=== PATIENT | female | born 1965 | race Caucasian/White ===

== ENCOUNTER → 2018-02-15 | Outpatient (CLI) | payer BC ==
[~2018-02-15] MED LIST: AMLO-99 PO; ASCO-182 PO; AZIT-17 PO; BIOT10TA3 PO; CALC600T63 PO; CITA-145 PO; FLUT16SP19; HYDR-2966 PO; HYDR-4309 PO; LORA-629 PO; MULT1CAP59 PO; NORE0.3532 PO; NORE5TAB6; PROP60TA15 PO
--- NOTE | 2018-02-15 13:47 | RADIOLOGY IMAGING REPORT ---
FACILITY: [facility] PATIENT NAME: SHARA LOVING : [id number] MR: [id number] V: [id number] EXAM DATE: [id number] ORDERING PHYSICIAN: KAYY STROUD TECHNOLOGIST: Priscila Pereira PROCEDURE:BILATERAL DIGITAL SCREENING MAMMOGRAM WITH CAD ASSISTED INTERPRETATION & 3D TOMOSYNTHESIS COMPARISON:Prior mammograms 02/11/17, 02/11/16, 02/08/15, 01/16/14, 09/06/12, 03/19/11. INDICATIONS:SCREENING FINDINGS: Moderately heterogeneous fibroglandular tissue is seen throughout the breasts. There is an area of postsurgical scaring and architectural distortion in the approximate 12 o'clock position of the Left breast it appears similar to the prior study. There is no evidence of malignant appearing mass, malignant appearing calcifications or other secondary sign of malignancy in either breast. DIAGNOSTIC CATEGORY 2--BENIGN FINDING. RECOMMENDATIONS: ROUTINE MAMMOGRAM AND CLINICAL EVALUATION. IMPRESSION: BIRADS 2: Benign finding. No significant abnormality is seen. Dictated by: Sneha Waggoner M.D. on 02/15/2018 at 11:40 Transcribed by: MALATHI on 02/15/2018 at 11:49 Approved by: Sneha Waggoner M.D. on 02/15/2018 at 13:47 [facility]
== END ==
LOC: MAMO 01:09
PROVIDERS: ATTEND Obstetrics & Gynecology
DX: Z12.31 Encounter for screening mammogram for malignant neoplasm of breast (principal)
CPT/HCPCS: 77063; 77067

== ENCOUNTER → 2019-02-17 | Outpatient (CLI) | payer BC ==
[~2019-02-17] MED LIST changes: +AMLO-127 PO; -AMLO-99 PO; -HYDR-4309 PO; +HYDR-653 PO
--- NOTE | 2019-02-17 15:46 | RADIOLOGY IMAGING REPORT ---
FACILITY: [facility] PATIENT NAME: SHARA LOVING : [id number] MR: [id number] V: [id number] EXAM DATE: ORDERING PHYSICIAN: PAMELLA ADHIKARI TECHNOLOGIST: Yoanna Rangel PROCEDURE: BILATERAL DIGITAL SCREENING MAMMOGRAM WITH CAD ASSISTED INTERPRETATION & 3D TOMOSYNTHESIS. REASON FOR STUDY: Screening. FAMILY HISTORY OF BREAST CANCER: Mother at age 50. BREAST PROCEDURES/TREATMENTS: Benign surgical biopsy of the Left breast. COMPARISON: 02/15/18, 02/11/17, 02/11/16, 02/08/15, 01/16/14, 09/06/12. VIEWS OBTAINED: Bilateral 2D & 3D full field CC & MLO projections. BREAST DENSITY: The breasts are heterogeneously dense which can obscure small masses. MAMMOGRAM FINDINGS: There is an area of architectural distortion in the 12 o'clock position of the Left breast which has remained stable and is in the location of patient's previous surgical biopsy. Also noted is a well circumscribed nodular density in the upper outer quadrant of the Left breast which is also stable. The remainder of the parenchymal pattern has remained stable throughout the breasts. IMPRESSION: BIRADS 2: Benign finding. DIAGNOSTIC CATEGORY 2--BENIGN FINDING. RECOMMENDATIONS: ROUTINE MAMMOGRAM AND CLINICAL EVALUATION. Dictated by: Sneha Waggoner M.D. on 02/17/2019 at 15:10 Transcribed by: MALATHI on 02/17/2019 at 15:20 Approved by: Sneha Waggoner M.D. on 02/17/2019 at 15:42 [facility]
== END ==
LOC: MAMO 00:36
PROVIDERS: ATTEND Nurse Practitioner Family
DX: Z12.31 Encounter for screening mammogram for malignant neoplasm of breast (principal)
CPT/HCPCS: 77063; 77067